=== PATIENT | male | born 1995 | race Caucasian/White ===

== ENCOUNTER 2018-09-21 21:51 | Emergency (ER) | payer SELFPAY ==
[~2018-09-21] VITALS: Ht 167.6 cm; Wt 68.2 kg
[2018-09-21 22:01] VITALS: Ht 167.6 cm; Wt 68.2 kg
[2018-09-21] MEDS ORDERED: ERYTHROMYCIN OPT1 GM LEFT EYE (23:40)
[2018-09-21 23:52] VITALS: BP 134/70
== END 2018-09-21 23:52 | disposition home or self-care (01) ==
LOC: D.ER 21:51
DX: S05.02XA Injury of conjunctiva and corneal abrasion without foreign body, left eye, initial encounter (principal); X58.XXXA Exposure to other specified factors, initial encounter; Y93.89 Activity, other specified; Y92.89 Other specified places as the place of occurrence of the external cause